=== PATIENT | female | born 1975 | race Caucasian/White ===

== ENCOUNTER 2016-08-03 09:22 | Emergency (ER) | payer BC, OTHER ==
[~2016-08-03] VITALS: Ht 157.5 cm; Wt 86.0 kg
[2016-08-03 12:01] VITALS: BP 130/75
== END 2016-08-03 12:04 | disposition home or self-care (01) ==
LOC: EMS 09:23
DX: L25.9 Unspecified contact dermatitis, unspecified cause (principal); Z88.0 Allergy status to penicillin
CPT/HCPCS: 99282

== ENCOUNTER 2016-08-06 09:25 | Emergency (ER) | payer BC, OTHER ==
[~2016-08-06] VITALS: Ht 157.5 cm; Wt 81.0 kg
[2016-08-06 10:07] VITALS: BP 125/41
[2016-08-06 10:23] LABS: APPEARANCE,URINE CLEAR (CLEAR); GLUCOSE, URINE (UA) NEGATIVE (NEGATIVE); KETONES,URINE NEGATIVE (NEGATIVE); LEUKOCYTE ESTERASE ,URINE NEGATIVE (NEGATIVE); OCCULT BLOOD,URINE NEGATIVE (NEGATIVE); PROTEIN,URINE NEGATIVE (NEGATIVE)
[2016-08-06 10:25] LABS: ADD UA MICROSCOPIC NO
[2016-08-06] MEDS ORDERED: HYDROCODONE/ACETAMINOPHEN 5-325 MG TABLET PO ONE (10:45)
== END 2016-08-06 11:03 | disposition home or self-care (01) ==
LOC: EMS 09:26
DX: M54.5 Low back pain (principal); G43.909 Migraine, unspecified, not intractable, without status migrainosus; Z88.0 Allergy status to penicillin
CPT/HCPCS: 99283